=== PATIENT | female | born 1980 | race Two or more races ===

== ENCOUNTER 2025-06-11 21:38 | Emergency (ER) | payer OTHER, MEDICAID ==
[~2025-06-11] VITALS: Ht 157.5 cm; Wt 110.9 kg
--- NOTE | 2025-06-12 00:52 | ED.PDOC ---
SOB-HPI HPI Comments 44-year-old female complains of dry cough and shortness of breath with wheezing intermittently for the last 2 weeks. Gradually getting worse. Patient states she has a history of asthma and walking pneumonia with similar symptoms in the past. Chief Complaint: Shortness of Breath Time Seen by MD: 00:38 Reviewed notes: Nurses Notes Information Source: Patient Mode of Arrival: Ambulatory Severity: Moderate Timing: Hours Past Medical History PAST MEDICAL HISTORY: Asthma Social History Smoker: Non-Smoker Constitutional: reports: fatigue Respiratory: reports: cough, SOB with excertion, wheezing All Other Systems: Reviewed and Negative Physical Exam General Appearance: Mild Distress HEENT: Normal ENT Inspection, Pharynx Normal, TMs Normal Neck: Full Range of Motion, Non-Tender, Normal, Normal Inspection Respiratory: No Accessory Muscle Use, Wheezing Cardiovascular: No Edema, No JVD, No Murmur, No Gallop, Normal Peripheral Pulses, Regular Rate/Rhythm Breast Exam: Deferred Gastrointestinal: No Organomegaly, Non Tender, No Pulsatile Mass, Normal Bowel Sounds, Soft Genitalia: Deferred Pelvic: Deferred Rectal: Deferred Extremities: No calf tenderness, Normal capillary refill, Normal inspection, Normal range of motion, Non-tender, No pedal edema Musculoskeletal : Apperance: Normal Neurologic: Alert, underwriting clerk II-XII nml as Tested, No Motor Deficits, Normal Affect, Normal Mood, No Sensory Deficits Cerebellar Function: Normal Reflexes: Normal Skin: Dry, Normal Color, Warm Lymphatic: No Adenopathy Was a procedure done? Was a procedure done?: No Differential Dx Differential Diagnosis: Asthma, COPD, Respiratory Distress, URI, Other X-Ray, Labs, Meds, VS Vital Signs Date Time Temp Pulse Resp B/P (MAP) Pulse Ox O2 Delivery O2 Flow Rate FiO2 06/11/25 21:38 98.3 99 22 174/100 98 98.3 06/11/25 21:38 98 Room Air* 0 21 Time of 1ST Reevaluation: 00:50 Reevaluation 1ST: Improved Patient Education/Counseling: Diagnosis, Treatment Family Education/Counseling: No Family Present SEPSIS Sepsis Screen Date sepsis recognized/suspect: Jun 11, 2025 Time Sepsis recognized/suspect: 2137 Recent Procedure: No On Antibiotic Therapy: No Respiratory Rate >20: Yes Heart Rate >90: Yes Temp<36 C (96.8 F) or >38.3 C: No SBP <90 or MAP <65 mmHG: No New Acute Mental Status Change: No Is the patient on CPAP, BIPAP,: No Vital Signs Date Time Temp Pulse Resp B/P (MAP) Pulse Ox O2 Delivery O2 Flow Rate FiO2 06/11/25 21:38 98.3 99 22 174/100 98 98.3 06/11/25 21:38 98 Room Air* 0 21 Departure 1 Departure Time of Disposition: 01:00 Impression: Primary Impression: Acute asthma exacerbation Additional Impression: Cough Disposition: HOME / SELF CARE / HOMELESS Condition: Stable Discharged With: Self Critical Care Note Critical Care Time?: No Stability Stability form required: No Heart Score Heart Score: Heart Score Response (Comments) Value History N/A 0 EKG N/A 0 Age N/A 0 Risk Factors N/A 0 Troponin N/A 0 Total 0 ISMA LIRA MD Jun 12, 2025 00:52
[2025-06-12] MEDS ORDERED: AZIT500T66 PO (00:53)
[2025-06-12] MEDS ORDERED: ALBU108A5 IN (00:53)
[2025-06-12] MEDS ORDERED: PRED20TA2 PO (00:54)
[2025-06-12] MEDS: IPRATROPIUM BROM 0.5 MG/2.5ML INH SOL NEB ONE (01:07)
[2025-06-12] MEDS: ALBUTEROL SULF 2.5 MG/0.5ML(0.5%) NEB SOLN NEB ONE (01:07)
[2025-06-12] MEDS: AZITHROMYCIN 250 MG TAB PO ONE (01:22)
[2025-06-12] MEDS: predniSONE 20 MG TAB PO ONE (01:22)
[2025-06-12 01:27] VITALS: BP 141/87; PULSE 98; TEMP 98
[2025-06-12 01:28] VITALS: RESP 18; O2SAT 95
== END 2025-06-12 01:33 | disposition home or self-care (01) ==
LOC: ER 21:38
DX: J45.901 Unspecified asthma with (acute) exacerbation (principal)
CPT/HCPCS: 94640; 99283; J7512